=== PATIENT | female | born 1985 | race Caucasian/White ===

== ENCOUNTER 2021-07-20 14:36 | Emergency (ER) | payer SELFPAY ==
[~2021-07-20] VITALS: Ht 157.5 cm; Wt 67.3 kg
[2021-07-20 14:42] VITALS: BP 115/73
--- NOTE | 2021-07-20 17:30 | NUR ---
36/F PRESENTS TO ED FOR MEDICAL CLEARANCE. PATIENT STATES SHE IS ATTEMPTING TO GET INTO A SUBTANCE ABUSE PROGRAM BUT TESTED POSITIVE FOR METH STATES THE PROGRAM IS REQUESTING A MEDICAL CLEARANCE. PATIENT ADMITS TO USE OF METH TWO DAYS AGO, PATIENT REPORTS BEING 6 MONTHS CURRENTLY, A2. PATIENT DENIES PAIN OR ANY OTHER MEDICAL COMPLAINT AT THIS TIME.
[2021-07-20] MEDS ORDERED: CEPH500C16 PO (17:54)
--- NOTE | 2021-07-20 18:21 | NUR ---
Patient discharged with v/s stable. Written and verbal after care instructions ABOUT URINARY TRACT INFECTION AND MEDICAL SCREENING EXAM given and explained. Patient alert, oriented and verbalized understanding of instructions. Ambulatory with steady gait. All questions addressed prior to discharge. ID band removed. Patient advised to follow up with PMD. Rx of KEFLEX given. Patient educated on indication of medication including possible reaction and side effects. Opportunity to ask questions provided and answered.
== END 2021-07-20 18:22 | disposition home or self-care (01) ==
LOC: MED 14:36
DX: O23.42 Unspecified infection of urinary tract in pregnancy, second trimester (principal); Z00.01 Encounter for general adult medical examination with abnormal findings; Z3A.24 24 weeks gestation of pregnancy; Z79.2 Long term (current) use of antibiotics
CPT/HCPCS: 81002; 81025; 87086; 99283; 99284